=== PATIENT | male | born 1960 | race Caucasian/White ===

== ENCOUNTER → 2021-02-17 | Outpatient (CLI) | payer OTHER | LOC: SJCVCIMAG 09:53 | PROVIDERS: ATTEND Internal Medicine Cardiovascular Disease | DX: Z01.810 Encounter for preprocedural cardiovascular examination (principal); R94.31 Abnormal electrocardiogram [ECG] [EKG]; I49.3 Ventricular premature depolarization; R06.00 Dyspnea, unspecified; Z79.82 Long term (current) use of aspirin ==

== ENCOUNTER → 2021-09-20 | Outpatient (CLI) | payer OTHER ==
[~2021-09-20] MED LIST: ASA81BEC PO; VITRUM SENIOR1 EACH PO
== END ==
LOC: LAB 14:15
PROVIDERS: ATTEND Student in an Organized Health Care Education/Training Program
DX: Z01.812 Encounter for preprocedural laboratory examination (principal); Z20.822 Contact with and (suspected) exposure to COVID-19

== ENCOUNTER → 2021-09-22 | Outpatient (CLI) | payer OTHER ==
[~2021-09-22] VITALS: Ht 180.3 cm; Wt 81.6 kg
--- NOTE | 2021-09-25 11:02 | P ---
[facility] [place] [address] [address] PROCEDURE REPORT Name: JIAN TAN [id number] Admission: 09/22/21 Attend Phys: Chuck Beltran Discharge: Date of : 58 Report #: [id number] THIS REPORT FOR: cc: Mustapha Teresa David J. DO McElhinney, Christian C. MD ~ cc: Mustapha Teresa DO DATE OF SERVICE: 09/22/2021 PROCEDURE PERFORMED: Colonoscopy with polypectomies. HISTORY OF PRESENT ILLNESS: The patient is a 61-year-old male who presents today for routine screening colonoscopy. Last colonoscopy was greater than 10 years ago, reportedly negative. He denies any symptoms, no family history of colon cancer. DESCRIPTION OF PROCEDURE: The risks and benefits of the procedure were explained to the patient, those risks including but not limited to bleeding, perforation and the risk of sedation. He understood these risks and gave informed consent. Sedation was given using propofol per anesthesia. Next, a digital rectal exam was initially performed, which was normal. Next, using a standard Olympus colonoscope, scope was placed in the patient's anus and advanced under direct vision to the cecum. The overall prep was excellent. The cecum and ileocecal valve were normal in appearance. In the proximal ascending colon, a 6 mm sessile polyp was noted. This was removed with snare cautery. In the transverse colon, a 4 mm sessile polyp noted and removed with cold forceps. In the descending colon, a 5-mm sessile polyp removed with cold forceps. In the sigmoid colon, a total of 4 sessile polyps were noted, they ranged in size from 5-8 mm. These were removed by snare cautery. In the rectum, there were a total of 6 polyps noted. They ranged from 3 mm to the largest being 1.2 cm and pedunculated. Most were removed by snare cautery. Some were smaller were removed by cold forceps. Sigmoid diverticulosis was also noted. The scope was then withdrawn and the procedure terminated. The patient tolerated the procedure well. IMPRESSION: 1. Multiple colonic polyps as described above. 2. Sigmoid diverticulosis. 3. Otherwise, normal colonoscopy. RECOMMENDATIONS: 1. Await biopsy results. 2. Repeat colonoscopy in [address] [address] PROCEDURE REPORT Name: JIAN TAN Room #: REG [facility] Baez#: [id number] Admission: 09/22/21 Attend Phys: Chuck Beltran Discharge: Date of : 58 Report #: [id number] Thank you for allowing me to participate in his care. <ELECTRONICALLY SIGNED> By: Chuck Bruce MD 09/25/21 1102 0832 1210 Chuck Bruce MD /nt
--- NOTE | 2021-09-28 12:06 | PATH ---
[facility] [place] [address] PATHOLOGY RPT PROCEDURE Name: FAHAD TAN Room #: REG [facility]..#: [id number] Admission: 09/22/21 Date of : 58 Discharge: Report #: [id number] Path Case #: [id number] [facility] Accession Number: [id number] . 01 Material submitted: . PART A: colon - ASCENDING COLON POLYP. Modifiers: ascending PART B: colon - TRANSVERSE COLON POLYP. Modifiers: transverse PART C: colon - DESCENDING COLON POLYP. Modifiers: descending PART D: sigmoid colon - SIGMOID COLON POLYP PART E: rectum - RECTAL POLYP . 01 Clinical history: . SCREENING COLON CANCER . 02 Diagnosis: A. Large bowel "ascending colon polyp", biopsy: - Tubular adenoma; negative for high-grade dysplasia and malignancy. . B. Large bowel "transverse colon polyp", biopsy: - Tubular adenoma; negative for high-grade dysplasia and malignancy. . C. Large bowel "descending colon polyp", biopsy: - Large bowel mucosa without significant pathologic alteration. . D. Large bowel "sigmoid colon polyp", biopsy: - Hyperplastic polyp; negative for dysplasia and malignancy. . E. Large bowel "rectal polyp", biopsy: - Tubular adenoma; negative for high-grade dysplasia and malignancy. - Hyperplastic polyp; negative for dysplasia and malignancy. . (ZAINK:nikita; 09/27/2021) MBR 09/27/2021 1727 Local . 02 Electronically signed: . Tutu Rodriguez MD, Pathologist NPI- [id number] . 01 Gross description: . A. The specimen is received in formalin, labeled "Fahad Tan, ascending colon polyp". Received are 4 segments of pale solis tissue ranging in size from 0.2 cm to 0.5 cm in maximum dimensions. The specimen is submitted entirely in cassette A1. . B. The specimen is received in formalin, labeled "Fahad Tan, transverse colon polyp". Received are 3 segments of pale solis tissue ranging in size from 0.2 cm to 0.4 cm in maximum [place] [address] PATHOLOGY RPT PROCEDURE Name: FAHAD TAN Room #: REG CLI Geoffrey.#: [id number] Admission: 09/22/21 Date of : 58 Discharge: Report #: [id number] Path Case #: [id number] is submitted entirely in cassette B1. . C. The specimen is received in formalin, labeled "Radhauvstkiah, aFhad, descending colon polyp". Received are 3 segments of pale solis tissue ranging in size from 0.2 cm to 0.3 cm in maximum dimensions. The specimen is submitted entirely in cassette C1. . D. The specimen is received in formalin, labeled "Radhauvstkiah, Fahad, sigmoid colon polyp". Received are 4 segments of pale solis tissue ranging in size from 0.6 to 0.9 cm in maximum dimensions. The specimen is submitted entirely in cassette D1. . E. The specimen is received in formalin, labeled "Radhauvstad, Fahad, rectal polyp". Received is a segment of light solis to dark solis tissue measuring 1.0 x 0.6 x 0.6 cm in greatest dimensions with an attached stalk measuring 0.3 cm in length by 0.3 cm in diameter. The surgical margin is inked. The specimen is sectioned into 2 pieces and entirely submitted in cassette E1. . Also received within the specimen container are multiple segments of light solis-yellow tissue measuring 1.5 x 0.3 x 0.1 cm in aggregate dimensions. The specimen is filtered and entirely submitted in cassette E2.([facility]; 09/23/2021) [facility] 09/23/2021 1308 Local . 02 Pathologist provided ICD-10: D12.2, D12.3, K63.5, D12.8, K62.1 . 02 CPT . 040297, 089626, [id number], [id number], [id number] Specimen Comment: A courtesy copy of this report has been sent to [phone], [phone] Specimen Comment: [id number] Specimen Comment: Report sent to / DR MELTON Performed at: 01 [facility] [address] [id number] MD Sagar Tripp MD Phone: [phone] Performed at: 02 [facility] [address] [id number] MD Der Desai MD Phone: [phone]
== END | disposition home or self-care (01) ==
LOC: GI
PROVIDERS: ATTEND Specialist
DX: Z12.11 Encounter for screening for malignant neoplasm of colon (principal); D12.2 Benign neoplasm of ascending colon; D12.3 Benign neoplasm of transverse colon; D12.8 Benign neoplasm of rectum; K57.30 Diverticulosis of large intestine without perforation or abscess without bleeding; Z96.653 Presence of artificial knee joint, bilateral; Z98.890 Other specified postprocedural states; Z79.899 Other long term (current) drug therapy
CPT/HCPCS: 62110; 62900